=== PATIENT | female | born 1945 | race Caucasian/White ===

== ENCOUNTER 2017-12-24 12:45 | Emergency (ER) | payer MEDICARE ==
[~2017-12-24] VITALS: Ht 154.9 cm; Wt 99.8 kg
[~2017-12-24 12:45] MED LIST: (None)20 M1 PO; AMLO10 PO; ASPI81CH PO; Albuterol Sulf8.5 GM INH; BUDE6HFA INH; CEFD300 PO; CHOL10002 PO; CLOB.05TC TOP; Ciloxan5 ML LEFTEYE; Cleocin HCl300 MG PO; FISH1000 PO; GLUC500 PO; LEVFLO500 PO; PRED20; PRED20 PO; Prednisone20 MG PO; Verotin-Gr Cap1 EACH PO
[2017-12-24 13:19] LABS: BASOPHILS ABSOLUTE AUTO 0.06 K/mm3 (0.00-0.23); BASOPHILS PERCENT AUTO 1 % (0-2); EOSINOPHILS ABSOLUTE AUTO 0.15 K/mm3 (0.00-0.68); EOSINOPHILS PERCENT AUTO 2 % (0-6); Hematocrit 44.1 % (33.0-51.0); Hemoglobin 13.6 g/dL (11.5-16.0); IMMATURE GRAN ABSOLUTE AUTO 0.02 K/mm3 (0.00-0.10); IMMATURE GRAN PERCENT AUTO 0 % (0-1); LYMPHOCYTES ABSOLUTE AUTO 2.65 K/mm3 (0.84-5.20); LYMPHOCYTES PERCENT AUTO 33 % (21-46); MONOCYTES ABSOLUTE AUTO 0.57 K/mm3 (0.16-1.47); MONOCYTES PERCENT AUTO 7 % (4-13); Mean Corpuscular HGB Conc 30.8 g/dL (31.5-36.5); Mean Corpuscular Volume 91 fL (80-100); Mean Platelet Volume 9.7 fL (9.1-12.4); NEUTROPHILS ABSOLUTE AUTO 4.61 K/mm3 (1.96-9.15); NEUTROPHILS PERCENT AUTO 57 % (41-73); Platelet Count 294 K/mm3 (150-400); RDW Coefficient Variation 14.4 % (11.7-14.2); RDW Standard Deviation 47.8 fL (35.1-46.3); Red Blood Cell Count 4.86 M/mm3 (3.80-5.20); White Blood Cell Count 8.06 K/mm3 (4.00-11.30)
[2017-12-24 13:49] LABS: Alanine Aminotransfer (ALT/SGP 28 U/L (12-78); Albumin, Blood 3.2 g/dL (3.4-5.0); Albumin/Globulin Ratio 0.8 (0.8-1.8); Alk Phos 138 U/L (50-136); Anion Gap 9 mmol/L (6-16); Aspartate Aminotrans (AST/SGOT 33 U/L (12-37); Bilirubin, Total 0.3 mg/dL (0.1-1.0); Blood Urea Nitrogen 16 mg/dL (8-24); Bun/Creatinine Ratio 19.7 (12.0-20.0); CO2, Blood 24 mmol/L (21-32); Calcium, Blood 8.5 mg/dL (8.5-10.1); Chloride, Blood 111 mmol/L (98-108); Creatinine, Blood 0.81 mg/dL (0.40-1.00); Globulin, Blood 4.2 g/dL (2.2-4.0); Glomerular Filtration Rate >60 (60-); Glucose, Blood 105 mg/dL (70-99); Potassium, Blood 4.4 mmol/L (3.5-5.5); Sodium, Blood 144 mmol/L (136-145); Total Protein, Blood 7.4 g/dL (6.4-8.2); Troponin I <0.015 ng/mL (0.000-0.040)
[2017-12-24 14:37] LABS: Source, Urine Voided
[2017-12-24 14:45] LABS: Bilirubin, Urine Neg (Neg); Blood, Urine 1+ (Neg); Glucose Qualitative, Urine Neg (Neg); Ketones, Urine Neg (Neg); Leukocyte Esterase, Urine 3+ (Neg); Nitrite, Urine Neg (Neg); Protein, Urine Neg (Neg); Specific Gravity, Urine 1.005 (1.003-1.022); Urobilinogen, Urine NORM (Normal)
[2017-12-24 14:54] LABS: Appearance, Urine Clear (Clear); Color, Urine Yellow (P-Yellow)
[2017-12-24 14:55] LABS: Bacteria Rare /hpf; Red Blood Cells, Urine 0-2 /hpf (0-2); Squamous Epithelial Cells Few /hpf (Few)
== END 2017-12-24 16:25 | disposition home or self-care (01) ==
LOC: ER 12:45
PROVIDERS: Emergency Medicine
DX: I48.91 Unspecified atrial fibrillation (principal); I10 Essential (primary) hypertension; Z88.8 Allergy status to other drugs, medicaments and biological substances; Z88.1 Allergy status to other antibiotic agents; Z79.899 Other long term (current) drug therapy; Z79.82 Long term (current) use of aspirin; Z85.3 Personal history of malignant neoplasm of breast; J45.909 Unspecified asthma, uncomplicated; Z87.891 Personal history of nicotine dependence
CPT/HCPCS: 36415; 71046; 80053; 81001; 84443; 84484; 85025; 93005; 93010; 96361; 96374; 99284-25; J2405; J7030

== ENCOUNTER → 2018-06-21 | Outpatient (CLI) | payer MEDICARE | END | disposition home or self-care (01) | LOC: LAB SHORT 10:24 → LAB EV 10:24 | DX: L98.8 Other specified disorders of the skin and subcutaneous tissue (principal) | CPT/HCPCS: 87070; 87205 ==

== ENCOUNTER 2020-01-31 11:32 | Day surgery (SDC) | payer MEDICARE ==
[~2020-01-31] VITALS: Ht 154.9 cm; Wt 103.3 kg
[~2020-01-31 11:32] MED LIST changes: +ALBU90OI INH; +ASPIR 8181 M1 PO; +Betamethasone D15 G2; +GLUCOSAMINE-CH1 EAC7 PO; +VOLTAREN ARTHRI20 GM
--- NOTE | 2020-01-31 12:06 | NUR ---
01/31/20 1206 Maritza Thapa 1 TRY RIGHT HAND VALVE CML
== END 2020-01-31 13:17 | disposition home or self-care (01) ==
LOC: ORSCSDS 11:32
PROVIDERS: Internal Medicine Gastroenterology
PROC: 0DBM8ZX Excision of Descending Colon, Via Natural or Artificial Opening Endoscopic, Diagnostic (ICD-10-PCS; principal; 2020-01-31 13:15)
PROC: 0DBN8ZX Excision of Sigmoid Colon, Via Natural or Artificial Opening Endoscopic, Diagnostic (ICD-10-PCS; principal; 2020-01-31 13:15)
DX: Z12.11 Encounter for screening for malignant neoplasm of colon (principal); Z86.010 Personal history of colon polyps; D12.5 Benign neoplasm of sigmoid colon; D12.4 Benign neoplasm of descending colon; K44.9 Diaphragmatic hernia without obstruction or gangrene; K57.30 Diverticulosis of large intestine without perforation or abscess without bleeding; J45.909 Unspecified asthma, uncomplicated; I10 Essential (primary) hypertension; Z87.891 Personal history of nicotine dependence; E66.01 Morbid (severe) obesity due to excess calories; Z68.41 Body mass index [BMI] 40.0-44.9, adult; Z79.82 Long term (current) use of aspirin; Z79.899 Other long term (current) drug therapy
CPT/HCPCS: 88305; J2250; J2704; J7120

== ENCOUNTER 2020-07-31 11:29 | Emergency (ER) | payer MEDICARE ==
[~2020-07-31] VITALS: Ht 154.9 cm; Wt 99.8 kg
== END 2020-07-31 17:04 | disposition home or self-care (01) ==
LOC: ER 11:29
DX: M25.552 Pain in left hip (principal); I10 Essential (primary) hypertension; Z88.8 Allergy status to other drugs, medicaments and biological substances; Z88.1 Allergy status to other antibiotic agents; Z79.82 Long term (current) use of aspirin; Z86.73 Personal history of transient ischemic attack (TIA), and cerebral infarction without residual deficits; Z79.899 Other long term (current) drug therapy; Z87.891 Personal history of nicotine dependence
CPT/HCPCS: 73502; 99283-25

== ENCOUNTER 2022-02-27 19:07 | Emergency (ER) | payer MEDICARE, OTHER ==
[~2022-02-27] VITALS: Ht 157.5 cm; Wt 70.3 kg
[2022-02-27 21:12] LABS: Influenza B, PCR NEGATIVE (NEGATIVE); Resp Syncytial Virus, PCR NEGATIVE (NEGATIVE); SARS-Cov-2 (COVID-19) PCR, MMC NEGATIVE (NEGATIVE)
[2022-02-27 21:23] LABS: Influenza A, PCR POSITIVE (NEGATIVE)
[2022-02-27] MEDS ORDERED: BENZ100A PO (22:16)
== END 2022-02-27 22:21 | disposition home or self-care (01) ==
LOC: ER 19:07
PROVIDERS: Physician Assistant
DX: J10.1 Influenza due to other identified influenza virus with other respiratory manifestations (principal); I10 Essential (primary) hypertension; J45.909 Unspecified asthma, uncomplicated; Z20.822 Contact with and (suspected) exposure to COVID-19; Z79.899 Other long term (current) drug therapy; Z79.82 Long term (current) use of aspirin; Z88.8 Allergy status to other drugs, medicaments and biological substances; Z88.1 Allergy status to other antibiotic agents
CPT/HCPCS: 0241U

== ENCOUNTER 2022-03-03 22:46 | Observation (INO) | payer MEDICARE, OTHER ==
[~2022-03-03] VITALS: Ht 152.4 cm; Wt 98.7 kg
[~2022-03-03 22:46] MED LIST changes: +BENZ100A PO
[2022-03-04 08:24] LABS: BASOPHILS ABSOLUTE AUTO 0.02 K/mm3 (0.00-0.23); BASOPHILS PERCENT AUTO 0 % (0-2); EOSINOPHILS ABSOLUTE AUTO 0.01 K/mm3 (0.00-0.68); EOSINOPHILS PERCENT AUTO 0 % (0-6); Hematocrit 41.9 % (33.0-51.0); Hemoglobin 13.8 g/dL (11.5-16.0); IMMATURE GRAN ABSOLUTE AUTO 0.02 K/mm3 (0.00-0.10); IMMATURE GRAN PERCENT AUTO 0 % (0-1); LYMPHOCYTES ABSOLUTE AUTO 1.18 K/mm3 (0.84-5.20); LYMPHOCYTES PERCENT AUTO 15 % (21-46); MONOCYTES ABSOLUTE AUTO 0.09 K/mm3 (0.16-1.47); MONOCYTES PERCENT AUTO 1 % (4-13); Mean Corpuscular HGB 28.1 pg (26.0-34.0); Mean Corpuscular HGB Conc 32.9 g/dL (31.5-36.5); Mean Corpuscular Volume 85 fL (80-100); NEUTROPHILS ABSOLUTE AUTO 6.51 K/mm3 (1.96-9.15); NEUTROPHILS PERCENT AUTO 83 % (41-73); Platelet Count 294 K/mm3 (150-400); RDW Coefficient Variation 13.8 % (11.7-14.2); RDW Standard Deviation 43.5 fL (35.1-46.3); Red Blood Cell Count 4.91 M/mm3 (3.80-5.20); White Blood Cell Count 7.83 K/mm3 (4.00-11.30)
[2022-03-04 08:58] LABS: Bun/Creatinine Ratio 29.5 (12.0-20.0); Calcium, Blood 8.8 mg/dL (8.5-10.1); Creatinine, Blood 0.64 mg/dL (0.40-1.00); Magnesium, Blood 2.1 mg/dL (1.6-2.4); Potassium, Blood 3.3 mmol/L (3.5-5.5)
[2022-03-04] MEDS ORDERED: ASPI81CH PO (17:39)
--- NOTE | 2022-03-04 18:31 | NUR ---
PATIENT IS ALERT AND ORIENTED AND COOPERATIVE WITH CARE. ER ADMIT TO ROOM 305 THIS AFTERNOON. BP IS ELEVATED AT 166/79. RN CALLED DR. MERAZ'S CELL AND LEFT A VOICEMAIL REGARDING THIS BP. PATIENT'S DAUGHTER IS AT THE BEDSIDE. PATIENT STATES SHE FEELS MUCH BETTER THAN SHE DID AT HOME. LS ARE TIGHT. PATIENT IS INDEPENDENT IN THE ROOM. WILL CONTINUE TO MONITOR
--- NOTE | 2022-03-05 03:46 | NUR ---
SHIFT SUMMARY NOC PT A/O X 4. PLEASANT AND COOPERATIVE TO CARE. PT HAD C/O OF TIGHTNESS IN CHEST AND RECEIVED BT FROM RT WHICH PT STATED FEELING RELIEF. PT SLIGHTY HYPERTENSIVE BUT UNDER 160 SYSTOLIC. PT AMBULATED TO BATHROOM INDEPENDENTLY WITH FWW MULITPLE TIMES. PT IS CURRENTLY RESTING WITH BED RAILS UP, BED IN LOWEST POSITION, AND CALL LIGHT WITHIN REACH.
[2022-03-05 06:02] LABS: BASOPHILS ABSOLUTE AUTO 0.01 K/mm3 (0.00-0.23); BASOPHILS PERCENT AUTO 0 % (0-2); EOSINOPHILS PERCENT AUTO 0 % (0-6); Hematocrit 41.3 % (33.0-51.0); Hemoglobin 13.6 g/dL (11.5-16.0); IMMATURE GRAN ABSOLUTE AUTO 0.02 K/mm3 (0.00-0.10); IMMATURE GRAN PERCENT AUTO 0 % (0-1); LYMPHOCYTES ABSOLUTE AUTO 1.33 K/mm3 (0.84-5.20); LYMPHOCYTES PERCENT AUTO 15 % (21-46); MONOCYTES ABSOLUTE AUTO 0.11 K/mm3 (0.16-1.47); MONOCYTES PERCENT AUTO 1 % (4-13); Mean Corpuscular HGB 27.8 pg (26.0-34.0); Mean Corpuscular HGB Conc 32.9 g/dL (31.5-36.5); Mean Corpuscular Volume 85 fL (80-100); Mean Platelet Volume 9.1 fL (9.1-12.4); NEUTROPHILS ABSOLUTE AUTO 7.24 K/mm3 (1.96-9.15); NEUTROPHILS PERCENT AUTO 83 % (41-73); Platelet Count 286 K/mm3 (150-400); RDW Coefficient Variation 13.9 % (11.7-14.2); RDW Standard Deviation 42.8 fL (35.1-46.3); Red Blood Cell Count 4.89 M/mm3 (3.80-5.20); White Blood Cell Count 8.71 K/mm3 (4.00-11.30)
[2022-03-05 06:24] LABS: Bun/Creatinine Ratio 39.4 (12.0-20.0); Calcium, Blood 8.9 mg/dL (8.5-10.1); Creatinine, Blood 0.53 mg/dL (0.40-1.00); Potassium, Blood 4.5 mmol/L (3.5-5.5)
[2022-03-05] MEDS ORDERED: Acetaminophen650 M1 PO (11:51)
[2022-03-05] MEDS ORDERED: GUAI600T33 PO (11:52)
[2022-03-05] MEDS ORDERED: PRED20 PO (11:52)
[2022-03-05] MEDS ORDERED: FLUTICASONE-SA1 EAC1 INH (11:57)
== END 2022-03-05 12:52 | disposition home or self-care (01) ==
LOC: ER 22:46 → ERHOLD 22:47 → MEDS 03-04 16:34
PROVIDERS: Student in an Organized Health Care Education/Training Program; ADMIT Internal Medicine
DX: J45.901 Unspecified asthma with (acute) exacerbation (principal); I10 Essential (primary) hypertension; Z96.659 Presence of unspecified artificial knee joint; Z88.8 Allergy status to other drugs, medicaments and biological substances; Z88.1 Allergy status to other antibiotic agents
CPT/HCPCS: 36415; 71045; 80048; 83735; 85025; 94640; 94645; 94664; 94760; 96372; 96374; 99285-25; A9270; G0378; J1650; J2930; J7512

== ENCOUNTER → 2022-04-04 | Outpatient (CLI) | payer MEDICARE, OTHER ==
[~2022-04-04] MED LIST changes: +Acetaminophen650 M1 PO; +FLUTICASONE-SA1 EAC1 INH; +GUAI600T33 PO
== END ==
LOC: LAB 08:09 → LAB SHORT 08:09 → PLD 08:09
DX: D48.5 Neoplasm of uncertain behavior of skin (principal)
CPT/HCPCS: 88305

== ENCOUNTER 2022-06-10 06:12 | Emergency (ER) | payer MEDICARE, OTHER ==
[~2022-06-10] VITALS: Ht 162.6 cm; Wt 95.2 kg
[2022-06-10] MEDS ORDERED: Robaxin750 MG PO (07:37)
== END 2022-06-10 07:43 | disposition home or self-care (01) ==
LOC: ER 06:12
DX: S29.012A Strain of muscle and tendon of back wall of thorax, initial encounter (principal); M62.830 Muscle spasm of back; I10 Essential (primary) hypertension; X58.XXXA Exposure to other specified factors, initial encounter; Z88.8 Allergy status to other drugs, medicaments and biological substances; Z79.899 Other long term (current) drug therapy
CPT/HCPCS: A9270

== ENCOUNTER 2023-12-05 06:20 | Day surgery (SDC) | payer MEDICARE ==
[~2023-12-05] VITALS: Ht 152.4 cm; Wt 87.9 kg
[~2023-12-05 06:20] MED LIST changes: +Balanced Salt Epinephrine Irrigation Solution 500 mL IR SCH; +Lidocaine HCl/Pf 1% 5 ML VIAL XX SCH; +NS 500 ML IV ONE; +PHENYLEPHRINE\\TROPICAMIDE\\TETRACAINE OPHTHALMIC DILATING SOLN LEFTEYE PRN; +Povidone-Iodine 450 DROP/30 ML Solution LEFTEYE SCH; +Povidone-Iodine 450 DROP/30 ML Solution ONE; +Robaxin750 MG PO; +Tetracaine HCl/Pf 0.5% Opth Soln 4 ml ONE
[2023-12-05] MEDS ORDERED: Lidocaine HCl/Pf 1% 5 ML VIAL ONE (06:42)
[2023-12-05] MEDS ORDERED: Triamcinolone A15 G3 TOP (07:09)
[2023-12-05] MEDS ORDERED: LOSARTAN-HCTZ1 EAC5 PO (07:09)
[2023-12-05] MEDS ORDERED: NS 500 ML IV ONE (07:14)
[2023-12-05] MEDS ORDERED: Midazolam HCl 1MG / ML 2ML Vial ONE (08:05)
[2023-12-05] MEDS ORDERED: Glycopyrrolate 0.2 MG/ML 5ML VIAL ONE (08:19)
[2023-12-05 08:40] VITALS: BP 156/68
== END 2023-12-05 08:57 | disposition home or self-care (01) ==
LOC: ORSCSDS 06:20
PROVIDERS: Student in an Organized Health Care Education/Training Program
PROC: 08RK3JZ Replacement of Left Lens with Synthetic Substitute, Percutaneous Approach (ICD-10-PCS; principal; 2023-12-05 08:00)
DX: H25.813 Combined forms of age-related cataract, bilateral (principal); H21.81 Floppy iris syndrome; H02.836 Dermatochalasis of left eye, unspecified eyelid; H02.833 Dermatochalasis of right eye, unspecified eyelid; I10 Essential (primary) hypertension; J45.909 Unspecified asthma, uncomplicated; Z87.891 Personal history of nicotine dependence; Z79.899 Other long term (current) drug therapy
CPT/HCPCS: J2001; J2250; J7040; V2632

== ENCOUNTER 2023-12-12 09:52 | Day surgery (SDC) | payer MEDICARE ==
[~2023-12-12] VITALS: Ht 154.9 cm; Wt 191.8 kg
[~2023-12-12 09:52] MED LIST changes: -Balanced Salt Epinephrine Irrigation Solution 500 mL IR SCH; +LOSARTAN-HCTZ1 EAC5 PO; -Lidocaine HCl/Pf 1% 5 ML VIAL XX SCH; -PHENYLEPHRINE\\TROPICAMIDE\\TETRACAINE OPHTHALMIC DILATING SOLN LEFTEYE PRN; -Povidone-Iodine 450 DROP/30 ML Solution LEFTEYE SCH; +Triamcinolone A15 G3 TOP
[2023-12-12] MEDS ORDERED: FentaNYL Citrate 50 MCG/ML 2 ML Injection ONE (09:53)
[2023-12-12] MEDS ORDERED: Midazolam HCl 1MG / ML 2ML Vial ONE (09:54)
[2023-12-12] MEDS ORDERED: NS 500 ML IV ONE ×3 (10:13)
--- NOTE | 2023-12-12 10:13 | NUR ---
12/12/23 1013 Annmarie Rosa CALL LIGHT WITHIN REACH. TETRACAINE IN RIGHT EYE AT 1011 AND PLEROSYETT IN AT 1013
--- NOTE | 2023-12-12 11:37 | NUR ---
12/12/23 1137 Maged Fernández PT REPORTED SEEING MANY NEW BLACK DOTS FOLLOWING PROCEDURE. DR. LINO CONSULTED AND APPROVED D/C.
[2023-12-12 11:43] VITALS: BP 120/73
[2023-12-13] MEDS ORDERED: Lidocaine HCl/Pf 1% 5 ML VIAL XX SCH (06:00)
[2023-12-13] MEDS ORDERED: PHENYLEPHRINE\\TROPICAMIDE\\TETRACAINE OPHTHALMIC DILATING SOLN RIGHTEYE PRN (06:00)
[2023-12-13] MEDS ORDERED: Balanced Salt Epinephrine Irrigation Solution 500 mL IR SCH (06:00)
[2023-12-13] MEDS ORDERED: Povidone-Iodine 450 DROP/30 ML Solution RIGHTEYE SCH (06:00)
== END 2023-12-12 11:35 | disposition home or self-care (01) ==
LOC: ORSCSDS 09:52
PROVIDERS: Student in an Organized Health Care Education/Training Program
PROC: 08RJ3JZ Replacement of Right Lens with Synthetic Substitute, Percutaneous Approach (ICD-10-PCS; principal; 2023-12-12 11:00)
DX: H25.811 Combined forms of age-related cataract, right eye (principal); Z96.1 Presence of intraocular lens; I10 Essential (primary) hypertension; J45.909 Unspecified asthma, uncomplicated; Z79.899 Other long term (current) drug therapy
CPT/HCPCS: J2250; J3010; J7040; V2632

== ENCOUNTER 2025-03-13 04:16 | Inpatient (IN) | payer MEDICARE, OTHER ==
[2025-03-13] VITALS (13 sets, daily range): BP systolic 123–155; BP diastolic 59–100
[~2025-03-13] VITALS: Ht 154.9 cm; Wt 90.7 kg
[~2025-03-13 04:16] MED LIST changes: -NS 500 ML IV ONE; -Povidone-Iodine 450 DROP/30 ML Solution ONE; -Tetracaine HCl/Pf 0.5% Opth Soln 4 ml ONE
[2025-03-13 04:52] LABS: BASOPHILS ABSOLUTE AUTO 0.06 K/mm3 (0.00-0.23); BASOPHILS PERCENT AUTO 1 % (0-2); EOSINOPHILS ABSOLUTE AUTO 0.27 K/mm3 (0.00-0.68); EOSINOPHILS PERCENT AUTO 3 % (0-6); Hematocrit 42.2 % (33.0-51.0); Hemoglobin 14.1 g/dL (11.5-16.0); IMMATURE GRAN ABSOLUTE AUTO 0.03 K/mm3 (0.00-0.10); IMMATURE GRAN PERCENT AUTO 0 % (0-1); LYMPHOCYTES ABSOLUTE AUTO 2.86 K/mm3 (0.84-5.20); LYMPHOCYTES PERCENT AUTO 35 % (21-46); MONOCYTES ABSOLUTE AUTO 0.66 K/mm3 (0.16-1.47); MONOCYTES PERCENT AUTO 8 % (4-13); Mean Corpuscular HGB Conc 33.4 g/dL (31.5-36.5); Mean Corpuscular Volume 86 fL (80-100); NEUTROPHILS ABSOLUTE AUTO 4.40 K/mm3 (1.96-9.15); NEUTROPHILS PERCENT AUTO 53 % (41-73); NRBC ABSOLUTE 0.00 K/mm3 (0.00-0.02); NRBC Auto 0.0 /100 WBC (0.0-0.2); Platelet Count 266 K/mm3 (150-400); RDW Coefficient Variation 13.6 % (11.7-14.2); RDW Standard Deviation 42.9 fL (35.1-46.3)
[2025-03-13 05:13] LABS: Alanine Aminotransfer (ALT/SGP 34.0 U/L (12-78); Albumin, Blood 3.2 g/dL (3.4-5.0); Albumin/Globulin Ratio 0.8 (0.8-1.8); Anion Gap 7.0 mmol/L (3-11); Aspartate Aminotrans (AST/SGOT 34.0 U/L (12-37); Bilirubin, Total 0.3 mg/dL (0.1-1.0); Blood Urea Nitrogen 14.0 mg/dL (8-24); CO2, Blood 29.0 mmol/L (21-32); Calcium, Blood 9.3 mg/dL (8.5-10.1); Chloride, Blood 102.0 mmol/L (98-108); Creatinine, Blood 0.47 mg/dL (0.40-1.00); Globulin, Blood 4.2 g/dL (2.2-4.0); Glucose, Blood 102.0 mg/dL (70-99); Potassium, Blood 3.9 mmol/L (3.5-5.5); Sodium, Blood 134.0 mmol/L (136-145); Total Protein, Blood 7.4 g/dL (6.4-8.2)
[2025-03-13 06:16] LABS: Source, Urine Clean Catch
[2025-03-13 06:21] LABS: Bilirubin, Urine Neg (Neg); Glucose Qualitative, Urine Neg (Neg); Ketones, Urine Neg (Neg); Leukocyte Esterase, Urine 3+ (Neg); Protein, Urine Neg (Neg); Specific Gravity, Urine 1.010 (1.003-1.022); Urobilinogen, Urine NORM (Normal)
[2025-03-13 06:29] LABS: Color, Urine Pale Yellow (P-Yellow)
[2025-03-13 06:30] LABS: Red Blood Cells, Urine 0-2 /hpf (0-2)
[2025-03-13] MEDS ORDERED: Piperacillin/Tazobactam Sod 3.375 GM in NS 100 ML IV ONE (10:10)
[2025-03-13] MEDS ORDERED: HYDROmorphone HCl/Pf 1MG SYR IV ONE ×2 (10:10→12:05)
[2025-03-13] MEDS ORDERED: NS 1,000 ML IV SCH ×2 (10:10→12:45)
[2025-03-13] MEDS ORDERED: Ondansetron HCl 2 MG / ML 2ML Vial IV ONE (10:10)
[2025-03-13] MEDS ORDERED: FLU VACC TS2025(65UP)/MF59C/PF 45 MCG/0.5 ML SYRINGE IM SCH (12:50)
[2025-03-13] MEDS ORDERED: Bupivacaine 0.5% W/EPI 1:200000 SDV 30 ML Vial ONE (13:50)
[2025-03-13] MEDS ORDERED: FentaNYL Citrate 50 MCG/ML 2 ML Injection ONE ×2 (14:16→18:57)
[2025-03-13] MEDS ORDERED: Dexamethasone Sod Phos 10 MG/ML 1ML VIAL ONE (14:22)
[2025-03-13] MEDS ORDERED: Metoclopramide HCl 5MG / ML 2ML Vial ONE (14:22)
[2025-03-13] MEDS ORDERED: Ondansetron HCl 2 MG / ML 2ML Vial ONE (14:22)
[2025-03-13] MEDS ORDERED: Phenylephrine HCl 100 MCG/ML-NS 10MLSYR (1MG/10ML) ONE (14:28)
[2025-03-13] MEDS ORDERED: Piperacillin/Tazobactam Sod 3.375 GM in NS 100 ML IV SCH (18:00)
[2025-03-13] MEDS ORDERED: Ketorolac Tromethamine 30mg Vial ONE (18:02)
[2025-03-13] MEDS ORDERED: Sugammadex Sodium 200 MG/2ML SDV (100 MG/ML) ONE (18:02)
[2025-03-13] MEDS ORDERED: Albuterol 2.5 MG/3 ML VIAL INH PRN (18:05)
[2025-03-13] MEDS ORDERED: Ondansetron HCl 2 MG / ML 2ML Vial IV PRN (18:10)
[2025-03-13] MEDS ORDERED: ePHEDrine Sulfate 50 MG/ML 1ML Injection IV PRN (18:10)
[2025-03-13] MEDS ORDERED: FentaNYL Citrate 50 MCG/ML 2 ML Injection IV PRN ×2 (18:10)
[2025-03-13] MEDS ORDERED: HYDROmorphone HCl/Pf 1MG SYR IV PRN ×2 (18:10)
[2025-03-13] MEDS ORDERED: Lactobacil 2-S.Thermo-Bifido 1 1 Cap PO SCH (21:00)
[2025-03-14 03:08] VITALS: BP 159/79
[2025-03-14 04:55] LABS: BASOPHILS ABSOLUTE AUTO 0.01 K/mm3 (0.00-0.23); BASOPHILS PERCENT AUTO 0 % (0-2); EOSINOPHILS ABSOLUTE AUTO 0.00 K/mm3 (0.00-0.68); EOSINOPHILS PERCENT AUTO 0 % (0-6); Hematocrit 40.3 % (33.0-51.0); Hemoglobin 13.4 g/dL (11.5-16.0); IMMATURE GRAN ABSOLUTE AUTO 0.04 K/mm3 (0.00-0.10); IMMATURE GRAN PERCENT AUTO 0 % (0-1); LYMPHOCYTES ABSOLUTE AUTO 0.82 K/mm3 (0.84-5.20); LYMPHOCYTES PERCENT AUTO 7 % (21-46); MONOCYTES ABSOLUTE AUTO 0.68 K/mm3 (0.16-1.47); MONOCYTES PERCENT AUTO 6 % (4-13); Mean Corpuscular HGB Conc 33.3 g/dL (31.5-36.5); Mean Corpuscular Volume 87 fL (80-100); NEUTROPHILS ABSOLUTE AUTO 10.87 K/mm3 (1.96-9.15); NEUTROPHILS PERCENT AUTO 88 % (41-73); NRBC ABSOLUTE 0.00 K/mm3 (0.00-0.02); NRBC Auto 0.0 /100 WBC (0.0-0.2); Platelet Count 250 K/mm3 (150-400); RDW Coefficient Variation 14.0 % (11.7-14.2); RDW Standard Deviation 44.2 fL (35.1-46.3)
--- NOTE | 2025-03-14 04:55 | NUR ---
SHIFT SUMMARY KALEB WAS A/OX 4 WHEN SHE RETURNED FROM PACU. PAIN WELL MANAGED TONIGHT. DENIES SOB, CHEST PAIN, NAUSEA. LAP SITES C/D/I. BT'S PRESENT BUT HYPOACTIVE. PT ABLE TO AMBULATE AND PRODUCE A VOID. NO ACUTE EVENTS TONIGHT, OR NOTED CHANGES TO PT CONDITION.
[2025-03-14 05:16] LABS: Alanine Aminotransfer (ALT/SGP 88.0 U/L (12-78); Albumin, Blood 2.7 g/dL (3.4-5.0); Albumin/Globulin Ratio 0.7 (0.8-1.8); Anion Gap 8.0 mmol/L (3-11); Aspartate Aminotrans (AST/SGOT 119.0 U/L (12-37); Bilirubin, Total 0.7 mg/dL (0.1-1.0); Blood Urea Nitrogen 20.0 mg/dL (8-24); CO2, Blood 25.0 mmol/L (21-32); Calcium, Blood 8.9 mg/dL (8.5-10.1); Chloride, Blood 105.0 mmol/L (98-108); Creatinine, Blood 0.72 mg/dL (0.40-1.00); Globulin, Blood 4.1 g/dL (2.2-4.0); Glucose, Blood 144.0 mg/dL (70-99); Potassium, Blood 4.4 mmol/L (3.5-5.5); Sodium, Blood 134.0 mmol/L (136-145); Total Protein, Blood 6.8 g/dL (6.4-8.2)
[2025-03-14] MEDS ORDERED: Albuterol 2.5 MG/3 ML VIAL INH PRN (06:30)
[2025-03-14 07:23] VITALS: BP 146/72
[2025-03-14] MEDS ORDERED: Enoxaparin 40 MG/0.4 ML SYR SC SCH (09:00)
--- NOTE | 2025-03-14 09:00 | NUR ---
Pt laying in bed, states she has some pain, worse with sitting up, didn't want roxicodone, just tylenol, a/ox4, pleasant and cooperative with care, follows commands well, lungs are clear t/o, resp even and unlabored, no cough noted, hrr, 2+ edema noted to b/l le, cap refill<3 sec, vs stable, afebrile, piv to R ac, site is clear and patenet, btx4, voids via bathroom, skin has surgical wounds to abd, with some bruising, maew, up to bathroom with sba using a walker, hector, call light in reach.
[2025-03-14 14:55] VITALS: BP 157/71
--- NOTE | 2025-03-14 19:02 | NUR ---
pt up to bathroom using walker, with sba, sat up in recliner for several hrs, had lots of company, plan is for discharge to home tomorrow per pt, no acute changes this shift, call light in reach.
[2025-03-14 21:07] VITALS: BP 162/88
[2025-03-15 02:44] VITALS: BP 162/78
--- NOTE | 2025-03-15 04:35 | NUR ---
SHIFT SUMMARY KALEB WAS A/O X4 ON ASSESSMENT. PAIN WELL MANAGED TONIGHT. LAP SITES C/D/I. PT DENIES SOB, CHEST PAIN, NAUSEA. PT AMBULATING/ ELIMINATING APPROPRIATELY. BM TONIGHT. NO ACUTE EVENTS OR NOTED CHANGES TO PT CONDITION.
[2025-03-15 06:12] LABS: BASOPHILS ABSOLUTE AUTO 0.05 K/mm3 (0.00-0.23); BASOPHILS PERCENT AUTO 0 % (0-2); EOSINOPHILS ABSOLUTE AUTO 0.09 K/mm3 (0.00-0.68); EOSINOPHILS PERCENT AUTO 1 % (0-6); Hematocrit 38.3 % (33.0-51.0); Hemoglobin 12.7 g/dL (11.5-16.0); IMMATURE GRAN ABSOLUTE AUTO 0.04 K/mm3 (0.00-0.10); IMMATURE GRAN PERCENT AUTO 0 % (0-1); LYMPHOCYTES ABSOLUTE AUTO 1.78 K/mm3 (0.84-5.20); LYMPHOCYTES PERCENT AUTO 13 % (21-46); MONOCYTES ABSOLUTE AUTO 1.05 K/mm3 (0.16-1.47); MONOCYTES PERCENT AUTO 8 % (4-13); Mean Corpuscular HGB Conc 33.2 g/dL (31.5-36.5); Mean Corpuscular Volume 87 fL (80-100); NEUTROPHILS ABSOLUTE AUTO 10.92 K/mm3 (1.96-9.15); NEUTROPHILS PERCENT AUTO 78 % (41-73); NRBC ABSOLUTE 0.00 K/mm3 (0.00-0.02); NRBC Auto 0.0 /100 WBC (0.0-0.2); Platelet Count 229 K/mm3 (150-400); RDW Coefficient Variation 14.0 % (11.7-14.2); RDW Standard Deviation 45.1 fL (35.1-46.3)
[2025-03-15 06:32] LABS: Alanine Aminotransfer (ALT/SGP 197.0 U/L (12-78); Albumin, Blood 2.6 g/dL (3.4-5.0); Albumin/Globulin Ratio 0.6 (0.8-1.8); Anion Gap 8.0 mmol/L (3-11); Aspartate Aminotrans (AST/SGOT 199.0 U/L (12-37); Bilirubin, Total 0.9 mg/dL (0.1-1.0); Blood Urea Nitrogen 17.0 mg/dL (8-24); CO2, Blood 28.0 mmol/L (21-32); Calcium, Blood 9.1 mg/dL (8.5-10.1); Chloride, Blood 103.0 mmol/L (98-108); Creatinine, Blood 0.66 mg/dL (0.40-1.00); Globulin, Blood 4.0 g/dL (2.2-4.0); Glucose, Blood 112.0 mg/dL (70-99); Potassium, Blood 3.8 mmol/L (3.5-5.5); Sodium, Blood 135.0 mmol/L (136-145); Total Protein, Blood 6.6 g/dL (6.4-8.2)
[2025-03-15 07:46] VITALS: BP 179/94
[2025-03-15 07:47] VITALS: BP 172/88
[2025-03-15] MEDS ORDERED: Albuterol 2.5 MG/3 ML VIAL INH PRN (09:45)
[2025-03-15 15:05] VITALS: BP 151/68
--- NOTE | 2025-03-15 17:25 | NUR ---
SHIFT SUMMARY PT AMBULATED HALLS WITH PT TODAY. PASSING FLATUS. UP TO CHAIR FOR MEALS. TAKING OXYCODONE 5MG INTERMITENTLY FOR PAIN. DENIES COMPLAINTS. WILL CONTINUE TOMONITOR.
[2025-03-15 19:54] VITALS: BP 149/71
[2025-03-16 04:48] LABS: BASOPHILS ABSOLUTE AUTO 0.05 K/mm3 (0.00-0.23); BASOPHILS PERCENT AUTO 0 % (0-2); EOSINOPHILS ABSOLUTE AUTO 0.15 K/mm3 (0.00-0.68); EOSINOPHILS PERCENT AUTO 1 % (0-6); Hematocrit 36.1 % (33.0-51.0); Hemoglobin 11.9 g/dL (11.5-16.0); IMMATURE GRAN ABSOLUTE AUTO 0.04 K/mm3 (0.00-0.10); IMMATURE GRAN PERCENT AUTO 0 % (0-1); LYMPHOCYTES ABSOLUTE AUTO 2.17 K/mm3 (0.84-5.20); LYMPHOCYTES PERCENT AUTO 17 % (21-46); MONOCYTES ABSOLUTE AUTO 1.23 K/mm3 (0.16-1.47); MONOCYTES PERCENT AUTO 10 % (4-13); Mean Corpuscular HGB Conc 33.0 g/dL (31.5-36.5); Mean Corpuscular Volume 86 fL (80-100); NEUTROPHILS ABSOLUTE AUTO 9.26 K/mm3 (1.96-9.15); NEUTROPHILS PERCENT AUTO 72 % (41-73); NRBC ABSOLUTE 0.00 K/mm3 (0.00-0.02); NRBC Auto 0.0 /100 WBC (0.0-0.2); Platelet Count 226 K/mm3 (150-400); RDW Coefficient Variation 14.2 % (11.7-14.2); RDW Standard Deviation 44.8 fL (35.1-46.3)
[2025-03-16 05:13] LABS: Alanine Aminotransfer (ALT/SGP 176.0 U/L (12-78); Albumin, Blood 2.5 g/dL (3.4-5.0); Albumin/Globulin Ratio 0.7 (0.8-1.8); Anion Gap 4.0 mmol/L (3-11); Aspartate Aminotrans (AST/SGOT 123.0 U/L (12-37); Bilirubin, Total 1.1 mg/dL (0.1-1.0); Blood Urea Nitrogen 15.0 mg/dL (8-24); CO2, Blood 30.0 mmol/L (21-32); Calcium, Blood 8.8 mg/dL (8.5-10.1); Chloride, Blood 103.0 mmol/L (98-108); Creatinine, Blood 0.59 mg/dL (0.40-1.00); Globulin, Blood 3.8 g/dL (2.2-4.0); Glucose, Blood 114.0 mg/dL (70-99); Potassium, Blood 3.7 mmol/L (3.5-5.5); Sodium, Blood 133.0 mmol/L (136-145); Total Protein, Blood 6.3 g/dL (6.4-8.2)
[2025-03-16 05:45] VITALS: BP 139/72
--- NOTE | 2025-03-16 06:03 | NUR ---
NOC SUMMARY- PT PAIN MANAGED WELL. PT IS AMBULATING TO BATHROOM c FWW. PT LAP SITES C/D/I. PT TOLERATING PO. NO NEW ISSUES NOTED.
[2025-03-16 08:07] VITALS: BP 157/67
--- NOTE | 2025-03-16 17:07 | NUR ---
SHIFT SUMMARY PODD 3 LAP ARPITA. LAP SITES x6 - C/D/I. ABD TENDERNESS w/PALPATION. TOLERATING REGULAR DIET WELL. SBA TO BATHROOM FOR VOID. PAIN CONTROLLED WELL PER EMAR. PLAN FOR DC HOME TOMORROW TO SNF/. RESTING IN BED w/CALL LIGHT WITHIN REACH.
[2025-03-16 19:42] VITALS: BP 152/77
[2025-03-17 04:03] VITALS: BP 157/65
--- NOTE | 2025-03-17 04:55 | NUR ---
NOC SUMMARY- PT PAIN MANAGED WELL. PT HAS BEEN GETTING UP REGULARLY TO VOID. PT IS AMBULATING WELL c FWW. PT HAS BEEN RESTING COMFORTABLY. PT LAP SITES C/D/I.
[2025-03-17 06:16] LABS: Alanine Aminotransfer (ALT/SGP 104.0 U/L (12-78); Albumin, Blood 2.4 g/dL (3.4-5.0); Albumin/Globulin Ratio 0.7 (0.8-1.8); Anion Gap 10.0 mmol/L (3-11); Aspartate Aminotrans (AST/SGOT 48.0 U/L (12-37); Bilirubin, Total 0.9 mg/dL (0.1-1.0); Blood Urea Nitrogen 13.0 mg/dL (8-24); CO2, Blood 26.0 mmol/L (21-32); Calcium, Blood 8.5 mg/dL (8.5-10.1); Chloride, Blood 101.0 mmol/L (98-108); Creatinine, Blood 0.57 mg/dL (0.40-1.00); Globulin, Blood 3.6 g/dL (2.2-4.0); Glucose, Blood 95.0 mg/dL (70-99); Potassium, Blood 4.0 mmol/L (3.5-5.5); Sodium, Blood 133.0 mmol/L (136-145); Total Protein, Blood 6.0 g/dL (6.4-8.2)
[2025-03-17 07:09] LABS: BASOPHILS ABSOLUTE AUTO 0.02 K/mm3 (0.00-0.23); BASOPHILS PERCENT AUTO 0 % (0-2); EOSINOPHILS ABSOLUTE AUTO 0.24 K/mm3 (0.00-0.68); EOSINOPHILS PERCENT AUTO 2 % (0-6); Hematocrit 34.6 % (33.0-51.0); Hemoglobin 11.3 g/dL (11.5-16.0); IMMATURE GRAN ABSOLUTE AUTO 0.05 K/mm3 (0.00-0.10); IMMATURE GRAN PERCENT AUTO 1 % (0-1); LYMPHOCYTES ABSOLUTE AUTO 1.66 K/mm3 (0.84-5.20); LYMPHOCYTES PERCENT AUTO 16 % (21-46); MONOCYTES ABSOLUTE AUTO 1.07 K/mm3 (0.16-1.47); MONOCYTES PERCENT AUTO 10 % (4-13); Mean Corpuscular HGB Conc 32.7 g/dL (31.5-36.5); Mean Corpuscular Volume 87 fL (80-100); NEUTROPHILS ABSOLUTE AUTO 7.32 K/mm3 (1.96-9.15); NEUTROPHILS PERCENT AUTO 71 % (41-73); NRBC ABSOLUTE 0.00 K/mm3 (0.00-0.02); NRBC Auto 0.0 /100 WBC (0.0-0.2); Platelet Count 219 K/mm3 (150-400); RDW Coefficient Variation 13.9 % (11.7-14.2); RDW Standard Deviation 44.0 fL (35.1-46.3)
[2025-03-17 07:19] VITALS: BP 140/63
--- NOTE | 2025-03-17 11:19 | NUR ---
THIS LINING PRESSER WALKED INTO ROOM TO SEE WHY PATIENT WAS CALLING.THE PATIENT STATED" I NEED THE BATHROOM." THIS LINING PRESSER ASSISTED PATIENT TO BATHROOM. THE PATIENT STATED" MY DAGHTER WANTS TO KNOW WHY I HAD BATH TODAY?" THIS LINING PRESSER STATED" THAT IS WHAT YOUR ASKED ME FOR." PATIENT REPLIED: "I WAS JUST CURIOUS." THIS LINING PRESSER REPLIED," WOULD YOU LIKE A SHOWER INSTEAD?" PATIENT STATED " OH NO! MY DAUGHTER WAS ONLY WONDERING."
--- NOTE | 2025-03-17 13:24 | NUR ---
PT OFFERRED SHOWER BEFORE DISCHARGE. PT ELECTS FOR BEDBATH INSTEAD. WILL CONTINUE TO MONITOR.
--- NOTE | 2025-03-17 13:47 | NUR ---
THIS TIMBER TREATING TANK OPERATOR WAS NOTIFIED FROM RN THAT PATIENT WANTS SHOWER.THIS TIMBER TREATING TANK OPERATOR WNT IN AND OFFERED SHOWER.PATIENT STATED" LETS DO ANOTHER CLEAN UP AND NO SHOWER." RN NOTIFIED OF THIS CONVERSATION.
[2025-03-17] MEDS ORDERED: OXYC5 PO (14:43)
--- NOTE | 2025-03-17 15:09 | NUR ---
Discharge instruction reviewed with pt. Stated understanding. Awaiting adult daughter for ride home.
== END 2025-03-17 15:35 | disposition home health service (06) | DRG 418 ==
LOC: ER 04:16 → SURS 04:17
PROVIDERS: Emergency Medicine; Family Medicine; Student in an Organized Health Care Education/Training Program; ADMIT Hospitalist
PROC: 0WQF4ZZ Repair Abdominal Wall, Percutaneous Endoscopic Approach (ICD-10-PCS; 2025-03-13)
PROC: 8E0W4CZ Robotic Assisted Procedure of Trunk Region, Percutaneous Endoscopic Approach (ICD-10-PCS; 2025-03-13)
PROC: 0DBU4ZZ Excision of Omentum, Percutaneous Endoscopic Approach (ICD-10-PCS; 2025-03-13)
PROC: 3E03329 Introduction of Other Anti-infective into Peripheral Vein, Percutaneous Approach (ICD-10-PCS; 2025-03-13)
PROC: 3E02340 Introduction of Influenza Vaccine into Muscle, Percutaneous Approach (ICD-10-PCS; 2025-03-13)
PROC: 0FT44ZZ Resection of Gallbladder, Percutaneous Endoscopic Approach (ICD-10-PCS; principal; 2025-03-13 08:00)
DX: K80.12 Calculus of gallbladder with acute and chronic cholecystitis without obstruction (principal); J45.21 Mild intermittent asthma with (acute) exacerbation; K42.0 Umbilical hernia with obstruction, without gangrene; M19.90 Unspecified osteoarthritis, unspecified site; K76.0 Fatty (change of) liver, not elsewhere classified; I25.10 Atherosclerotic heart disease of native coronary artery without angina pectoris; Z96.659 Presence of unspecified artificial knee joint; E11.9 Type 2 diabetes mellitus without complications; I50.9 Heart failure, unspecified; F17.210 Nicotine dependence, cigarettes, uncomplicated; I11.0 Hypertensive heart disease with heart failure; K21.9 Gastro-esophageal reflux disease without esophagitis; R74.8 Abnormal levels of other serum enzymes; Z23 Encounter for immunization; Z98.51 Tubal ligation status; Z90.12 Acquired absence of left breast and nipple; Z79.51 Long term (current) use of inhaled steroids; Z79.899 Other long term (current) drug therapy; Z86.73 Personal history of transient ischemic attack (TIA), and cerebral infarction without residual deficits; Z98.890 Other specified postprocedural states; Z85.3 Personal history of malignant neoplasm of breast; Z88.8 Allergy status to other drugs, medicaments and biological substances; Z88.1 Allergy status to other antibiotic agents; Z87.19 Personal history of other diseases of the digestive system
CPT/HCPCS: 36415; 76705; 80053; 81001; 83690; 85025; 87086; 88304; 88305; 93005; 93010; 94760; 96374; 96375; 96376; 97116; 97116-CQ; 97161; 97530; 97530-CQ; 99285-25; A9270; G0378; J1100; J1171; J1650; J1885; J2371; J2405; J2543; J2704; J2765; J3010; J7030